=== PATIENT | male | born 1960 | race Caucasian/White ===

== ENCOUNTER → 2017-09-27 | Outpatient (REF) ==
[~2017-09-27] MED LIST: CYCL10TA29 PO; IBUP800T37 PO; LEVO75TA68 PO; LEVO75TA73 PO; LEVO88TA43 PO; MULT1TAB64 PO
[2017-09-27 10:49] LABS: LDL CHOLESTEROL 125 mg/dl
== END ==
DX: Z02.9 Encounter for administrative examinations, unspecified (principal)

== ENCOUNTER → 2017-12-13 | Outpatient (CLI) | payer OTHER | LOC: LAB 08:08 | PROVIDERS: ATTEND Obstetrics & Gynecology | DX: E03.9 Hypothyroidism, unspecified (principal); E34.9 Endocrine disorder, unspecified; E53.8 Deficiency of other specified B group vitamins; E55.9 Vitamin D deficiency, unspecified | CPT/HCPCS: 36415; 82040; 82247; 82248; 82306; 82465; 82607; 82670; 83718; 84075; 84153; 84155; 84270; 84403; 84439; 84443; 84450; 84460; 84478; 84481; 85027 ==

== ENCOUNTER → 2018-02-06 | Outpatient (CLI) | payer OTHER | LOC: LAB 11:53 | PROVIDERS: ATTEND Obstetrics & Gynecology | DX: E34.9 Endocrine disorder, unspecified (principal) | CPT/HCPCS: 36415; 84153; 84270; 84403 ==

== ENCOUNTER → 2018-05-20 | Outpatient (CLI) | payer OTHER ==
[~2018-05-20] MED LIST changes: +LEVO-3 PO
== END ==
LOC: LAB 14:25
PROVIDERS: ATTEND Family Medicine
DX: E34.9 Endocrine disorder, unspecified (principal)
CPT/HCPCS: 36415; 82670; 84270; 84403

== ENCOUNTER → 2018-11-13 | Outpatient (CLI) | payer OTHER | LOC: LAB 14:44 | PROVIDERS: ATTEND Family Medicine | DX: E34.9 Endocrine disorder, unspecified (principal) | CPT/HCPCS: 36415; 82670; 84402; 84403 ==

== ENCOUNTER 2018-12-19 08:15 | Outpatient (RCR) | payer OTHER ==
--- NOTE | 2018-12-09 12:58 | PT INITIAL EVALUATION ---
MEDICAL DIAGNOSIS: R42 Vertigo TREATMENT DIAGNOSIS: Same, L horizontal canal BPPV DATE OF ONSET: 12/08/18 SUBJECTIVE: Adalberto Benitez presents to PT for vertigo which came on suddenly yesterday when he turned his head quickly L, creating L spinning vertigo. He had to leave work due to this vertigo. He had dizziness, N/V, and did the Braxton's maneuver which helped. His vertigo lasted four hours. He has a fullness in his L ear. Adalberto denies viral infection in the last two month. REHAB PROBLEM LIST: Decreased Balance, Decreased Work Function PREVIOUS MEDICAL HISTORY: Thyroid disorder, R navicular bone fracture. [place]CC[place] [employer] [place]: Posture: Head midline, no resting nystagmus. ROM: Cervical AROM WNL, without symptoms. Palpation: L SCM higher tone than R. Special Tests: Positive ageotrophic nystagmus, 2 beats with L horizontal canal test, negative for L, R posterior canal nystagmus, negative head thrust. Eye tracking WNL. Modified Romberg with LOB L. Gait: No weaving with gait with head motion. Balance: Mild unsteadiness with tandem stand eyes shut. ASSESSMENT: Adalberto Benitez presents with L horizontal canal BPPV. The predominant cause of horizontal canal BPPV is from the calcium carbonate crystal getting into the canal during the Braxton maneuver. After canalith repositioning and 10 min. settling, Adalberto reported he felt better. He's started on a vestibular up- training HEP. Short Term Goals/Patient's Goals Adalberto denies dizziness or out-of-sync feeling with all head positions. PLAN: Patient to be seen for Manual Therapy, Range of Motion, Neuromuscular Re- ed, Gait Trg/Balance Trg, Home Exercise Program 1x/Week for 2 Weeks Thank you for this referral. If you have any questions, comments, or concerns about this report or plan, please contact me at . DNP NURSING CARE PARTNER-BD signature date MTDD
[~2018-12-19 08:15] MED LIST changes: +ASPI81TA94 PO; +CHOL10005 PO; +MECL25TA9 PO; +MELA3CAP; +OMEG-96 PO; +SILD50TA5
--- NOTE | 2018-12-20 08:36 | PT PLAN OF CARE ---
Physician: Char Cruz DNP, [employer] AND [employer]OWER OPERATOR- Patient is being seen: twice Therapist: Trish Perez, [facility] Medical Diagnosis: R42 Vertigo Treatment Diagnosis: Same, L horizontal canal BPPV Date of Onset: 12/08/18 Date of Initial Evaluation: 12/09/18 Date patient was last seen: 12/19/18 Number of treatments: 2 Number of cancellations/No shows: 0 INTERVENTIONS: Manual Therapy, Neuromuscular Re-ed, Home Exercise Program GOALS/PATIENT'S GOAL: Adalberto denies dizziness or out-of-sync feeling with all head positions. met Patient Compliance: Excellent Prognosis: Excellent Reasons for discontinuing therapy: S: Adalberto denies dizziness, out-of-sync feeling with all head positions. He's biking as before. He does note L ear feels full. O: Palpation: L SCM still higher tone than R, tight medial pterygoid, surrounding fascia. Special Tests: Negative L Hallpike and negative L roll tests. Tandem gait with mild LOB, WNL feet kinesthetics. A/P: Adalberto Benitez has resolved BPPV. After manual therapy to the L upper cervical, SCM, pterygoid, he reported less fullness feeling in his L ear. I'll DC PT to brief HEP. Thank you. VI
[2019-02-17] MEDS ORDERED: ONDA8TAB91 PO (11:33)
[2019-02-22] MEDS ORDERED: DIA5 PO (08:48)
== END 2019-03-09 ==
LOC: PT 08:15
PROVIDERS: ATTEND Nurse Practitioner Primary Care
DX: H81.10 Benign paroxysmal vertigo, unspecified ear (principal)
CPT/HCPCS: 97161

== ENCOUNTER → 2018-12-20 | Outpatient (CLI) | payer OTHER | LOC: AUD 09:00 | PROVIDERS: ATTEND Otolaryngology | DX: R42 Dizziness and giddiness (principal) | CPT/HCPCS: 92557; 92570 ==

== ENCOUNTER → 2018-12-23 | Outpatient (CLI) | payer OTHER | LOC: LAB 15:36 | PROVIDERS: ATTEND Physician Assistant | DX: H91.8X2 Other specified hearing loss, left ear (principal); H81.12 Benign paroxysmal vertigo, left ear | CPT/HCPCS: 36415; 82565 ==

== ENCOUNTER → 2018-12-30 | Outpatient (CLI) | payer OTHER ==
[~2018-12-30] MED LIST changes: +GADOBENATE 529MG/1ML 15ML VIAL IVP ONE
--- NOTE | 2018-12-30 08:18 | RADIOLOGY IMAGING REPORT ---
FACILITY: [facility] PATIENT NAME: Emeterio Benitez : 1960 MR: [id number] V: [id number] EXAM DATE: ORDERING PHYSICIAN: MAHI MCCORMICK TECHNOLOGIST: Location: [facility] - [place], [place] Patient: Emeterio Benitez : 1960 Visit/Account:[id number] Date of Sevice: 12/30/2018 ORBITS FOREIGN BODY 1 VIEW Given history: Pre-MRI Additional history: None Findings:Osseous structures normal. Paranasal sinuses well aerated. There are no radiopaque foreign body seen over the orbits. Impression: Normal study. Patient cleared for MRI. Impression relayed to referring service at time of dictation. FINDINGS: The referring service at 8:15 AM Report Dictated By: Pete Pérez MD at 12/30/2018 8:11 AM Report E-Signed By: Pete Pérez MD at 12/30/2018 8:13 AM WSN:[id number]
--- NOTE | 2018-12-30 12:46 | RADIOLOGY IMAGING REPORT ---
[place] [facility] [place] NAME: Emeterio Benitez : 1960 MR: [id number] V: [id number] EXAM DATE: ORDERING PHYSICIAN: MAHI MCCORMICK TECHNOLOGIST: Location: [facility] - [place] Patient: Emeterio Benitez : 1960 Visit/Account:[id number] Date of Sevice: 12/30/2018 Examination: Internal auditory canal MR without and with contrast. History: Left-sided hearing loss, vertigo Comparison: None Technique: Multiplane pre and postcontrast MR imaging performed through the internal auditory canal r egions. Sagittal T1, axial FLAIR, coronal T2 and axial diffusion acquisitions obtained through the e ntire brain. 15 mL MultiHance injected. Findings: No diffusion restriction, hydrocephalus or midline shift. A few punctate white matter high signal fo ci, within normal limits for age. Normal midline craniocervical structures. Normal internal auditory canal and CP angle regions without pathologic enhancement. Expected fluid s ignal within the inner ear structures. No vestibular aqueduct enlargement. IMPRESSION: Normal CP angle and internal auditory canal regions without abnormality to explain the hearing loss. Report Dictated By: Kevan Crump MD at 12/30/2018 12:38 PM Report E-Signed By: Kevan Crump MD at 12/30/2018 12:43 PM WSN:[id number]
== END ==
LOC: MRI 01:10
PROVIDERS: ATTEND Physician Assistant
DX: H91.8X2 Other specified hearing loss, left ear (principal); H18.12 Bullous keratopathy, left eye
CPT/HCPCS: 70030; 70553; A9577